=== PATIENT | female | born 1995 | race Caucasian/White ===

== ENCOUNTER 2017-05-06 14:07 | Emergency (ER) | payer OTHER ==
[2017-05-06 14:17] VITALS: BP 128/58; PULSE 94; RESP 16; TEMP 97.8
--- NOTE | 2017-05-06 14:32 | ED ---
Extremity Problem HPI - General Chief complaint: Extremity Problem,Nontraumatic Stated complaint: knee pain Time Seen by Provider: 05/06/17 14:19 Source: patient Mode of arrival: ambulatory Limitations: no limitations - History of Present Illness Initial comments: 21-year-old female patient presented for evaluation of left knee pain. Patient states that she has had issues with her knees for a long time however the pain started to increase over the last 5 or 6 days. Patient states that she recently started a new job where she is on her feet all day. She believes this has contributed to the increase in pain. Patient states that she has pain to the medial knee with standing and ambulation. She states it does seem a little more swollen than the other knee. She denies any injury causing the pain. She denies any numbness or tingling in the leg. Denies any erythema, fever, or chills. Patient states in the past she was recommended to have MRI and possible cortisone injections to the knee however she was unable to follow up for this. Patient denies any recent shortness breath, chest pain, abdominal pain , nausea, vomiting, diarrhea, constipation, back pain, headache, visual changes , hematuria, dysuria, urinary frequency, urinary urgency, or any other complaints. - Related Data Previous Rx's Medication Instructions Recorded Cyclobenzaprine [Flexeril] 10 mg PO TID PRN #20 tablet 01/25/16 Naproxen [Naprosyn] 500 mg PO Q12HR PRN #20 tab 01/25/16 Ibuprofen [Motrin] 600 mg PO Q8HR PRN #30 tab 05/06/17 Allergies Allergy/AdvReac Type Severity Reaction Status Date / Time No Known Allergies Allergy Verified 05/06/17 14:17 Review of Systems ROS Statement: Those systems with pertinent positive or pertinent negative responses have been documented in the HPI. ROS Other: All systems not noted in ROS Statement are negative. Past Medical History Past Medical History: No Reported History History of Any Multi-Drug Resistant Organisms: None Reported Past Surgical History: Tonsillectomy Past Psychological History: Anxiety Smoking Status: Never smoker Past Alcohol Use History: None Reported Past Drug Use History: None Reported General Exam Limitations: no limitations General appearance: alert, in no apparent distress, other (This is a well- developed, well-nourished adult female patient in no acute distress. Vital signs upon presentation temperature 97.8F, pulse 94, respirations 16, blood pressure 128/50, pulse ox 100% on room air.) Eye exam: Present: normal appearance, PERRL, EOMI. Absent: scleral icterus, conjunctival injection, periorbital swelling Respiratory exam: Present: normal lung sounds bilaterally. Absent: respiratory distress, wheezes, rales, rhonchi, stridor Cardiovascular Exam: Present: regular rate, normal rhythm, normal heart sounds. Absent: systolic murmur, diastolic murmur, rubs, gallop, clicks Extremities exam: Present: normal inspection, full ROM, normal capillary refill , other (Patient is has increased pain and some laxity with valgus and varus maneuvers. No crepitus. No erythema or joint swelling. It is pink, warm, and dry. Cap refill less than 3 seconds. Pedal and posttibial pulses are 2+ and equal bilaterally.). Absent: tenderness, pedal edema, joint swelling, calf tenderness Neurological exam: Present: alert, oriented X3, CN II-XII intact Psychiatric exam: Present: normal affect, normal mood Skin exam: Present: warm, dry, intact, normal color. Absent: rash Course Vital Signs 05/06/17 14:15 Temperature 97.8 F Pulse Rate 94 Respiratory 16 Rate Blood Pressure 128/58 O2 Sat by Pulse 100 Oximetry Medical Decision Making - Medical Decision Making 21-year-old female patient percents for evaluation of left knee pain. Patient states the pain is increasing after starting a job where she is on her feet more than usual. She denies any injury. Physical exam was unremarkable, mild swelling noted area patient did have pain with valgus and varus maneuvers. Patient x-ray was negative for any acute process. Patient will be placed in an Zach wrap for comfort and support. She is given a prescription for ibuprofen. She is instructed to follow-up with orthopedics for recheck in 1-2 days. She is instructed to return here immediately for any new, worsening, or concerning symptoms. She verbalizes understanding and agrees with this plan. - Radiology Data Radiology results: report reviewed, image reviewed 3 views of the left near obtained and showed no acute fracture or dislocation evident in the left knee. The tricompartment joint spaces appear within normal limits. The overlying soft tissue appears unremarkable. Impression by Dr. Mauch shows no acute fracture or dislocation the left knee. Unremarkable study. Disposition Clinical Impression: Left knee pain Disposition: HOME SELF-CARE Condition: Good Instructions: Knee Pain (ED) Additional Instructions: Take medications as directed. Use Zach wrap for comfort and support. Follow-up with orthopedics for recheck in 1-2 days. Return here immediately for any new, worsening, or concerning symptoms. Prescriptions: Ibuprofen [Motrin] 600 mg PO Q8HR PRN #30 tab PRN Reason: Pain Referrals: None,Stated [Primary Care Provider] - 1-2 days Maciel Tinsley MD [STAFF PHYSICIAN] - 1-2 days Time of Disposition: 15:14
--- NOTE | 2017-05-06 14:45 | XR ---
EXAMINATION TYPE: XR knee complete LT DATE OF EXAM: 05/06/2017 CLINICAL HISTORY: Left knee pain. TECHNIQUE: Three views of the left knee are obtained. COMPARISON: None. FINDINGS: There is no acute fracture/dislocation evident in left knee. The tri-compartment joint sp aces appear within normal limits. The overlying soft tissue appears unremarkable. IMPRESSION: There is no acute fracture or dislocation in the left knee. Unremarkable study.
== END 2017-05-06 15:19 | disposition home or self-care (01) ==
LOC: EC 14:07
DX: M25.562 Pain in left knee (principal); M79.89 Other specified soft tissue disorders
CPT/HCPCS: 99283